=== PATIENT | male | born 1980 | race African-American/Black ===

== ENCOUNTER 2019-03-12 17:53 | Emergency (ER) | payer OTHER ==
[~2019-03-12] VITALS: Ht 172.7 cm; Wt 92.3 kg
[2019-03-12 18:05] VITALS: BP 139/99; TEMP 97.5
[2019-03-12 21:42] LABS: STREP SCREEN NEGATIVE
[2019-03-12 23:08] VITALS: PULSE 79
== END 2019-03-12 23:08 | disposition home or self-care (01) ==
LOC: COL.ER 17:53
PROVIDERS: Nurse Practitioner
DX: J06.9 Acute upper respiratory infection, unspecified (principal)
CPT/HCPCS: J0696

== ENCOUNTER 2019-06-12 05:15 | Emergency (ER) | payer OTHER ==
[~2019-06-12] VITALS: Ht 172.7 cm; Wt 95.5 kg
[2019-06-12 05:28] VITALS: BP 128/89
[2019-06-12 06:49] VITALS: PULSE 83; TEMP 98.6
== END 2019-06-12 06:48 | disposition home or self-care (01) ==
LOC: COL.ER 05:15
DX: R10.9 Unspecified abdominal pain (principal); Z20.2 Contact with and (suspected) exposure to infections with a predominantly sexual mode of transmission
CPT/HCPCS: J0696